=== PATIENT | male | born 1995 | race Caucasian/White ===

== ENCOUNTER 2017-11-17 20:32 | Emergency (ER) | payer OTHER ==
[~2017-11-17] VITALS: Ht 182.9 cm; Wt 136.1 kg
[2017-11-17] MEDS ORDERED: KEFLEX500 M1 PO (21:21)
[2017-11-17 21:28] VITALS: BP 158/84
== END 2017-11-17 21:28 | disposition home or self-care (01) ==
LOC: M.ERS 20:32
DX: S61.012A Laceration without foreign body of left thumb without damage to nail, initial encounter (principal); W26.8XXA Contact with other sharp object(s), not elsewhere classified, initial encounter; Y93.89 Activity, other specified; Y92.89 Other specified places as the place of occurrence of the external cause; Y99.0 Civilian activity done for income or pay

== ENCOUNTER 2018-12-06 23:42 | Emergency (ER) | payer OTHER ==
[~2018-12-06] VITALS: Ht 188 cm; Wt 147.0 kg
[~2018-12-06 23:42] MED LIST: KEFLEX500 M1 PO
[2018-12-07 00:05] LABS: ABSOLUTE BASOPHILS 0.1 thou/uL (0.0-0.2); ABSOLUTE EOSINOPHILS 0.1 thou/uL (0.0-0.7); ABSOLUTE LYMPHOCYTES 2.8 thou/uL (0.8-5.3); ABSOLUTE MONOCYTES 0.9 thou/uL (0.0-1.2); ABSOLUTE NEUTROPHILS 4.1 thou/uL (1.6-8.1); BASOPHILS 1.1 %; EOSINOPHILS 1.5 %; HEMATOCRIT 45.5 % (42.0-52.0); HEMOGLOBIN 15.8 gm/dL (14.0-18.0); LYMPHOCYTES 35.3 %; MCH 29.8 pg (26.0-34.0); MCHC 34.7 g/dL (28.0-37.0); MCV 85.9 fL (80.0-100.0); MPV 9.7 fl. (7.2-11.1); NUCLEATED RBCS 0 /100WBC; PLATELET COUNT* 234 thou/uL (150-400); POLYS 51.1 %; RDW-CV 12.7 % (10.5-14.5); WBC 8.1 thou/uL (4.0-11.0)
[2018-12-07 00:19] LABS: ALKALINE PHOSPHATASE 65 U/L (46-116); ANION GAP 11 mmol/L (7-16); BUN 15 mg/dL (7-18); CALCIUM 8.5 mg/dL (8.5-10.1); CHLORIDE 101 mmol/L (98-107); CO2 26 mmol/L (21-32); CREATININE 1.2 mg/dL (0.6-1.3); GLUCOSE 106 mg/dL (70-99); LIPASE 102 U/L (73-393); POTASSIUM 3.1 mmol/L (3.5-5.1); SGOT 28 U/L (15-37); SGPT 76 U/L (30-65); SODIUM 138 mmol/L (136-145); TOTAL BILIRUBIN 0.6 mg/dL (<0.1-1.0); TOTAL PROTEIN 7.8 g/dL (6.4-8.2); TROPONIN-I LEVEL <0.06 ng/mL (<0.06)
[2018-12-07 00:42] VITALS: BP 141/65
--- NOTE | 2018-12-07 17:38 | EKG ---
[place] [address] ELECTROCARDIOGRAM REPORT Name: ROSANNA WILKERSON Room: [facility]#: [id number] Admission: 12/06/18 Attend Phys: Discharge: 12/07/18 Date of : [birth year] Report #: [id number] THIS REPORT FOR: //name// [facility] ED Test Date: 2018-12-06 Test Time: 23:44:16 Pat Name: ROSANNA WILKERSON Department: Room: Gender: M [employer]: : 1995 Requested By: Elana Gonsalez Order Number: [id number] MD: Orlin Daley Measurements Intervals Rowe Rate: 86 P: 29 NE: 174 QRS: -3 QRSD: 107 T: 33 QT: 367 QTc: 439 Interpretive Statements Sinus rhythm ST elev, probable normal early repol pattern No previous ECG available for comparison Electronically Signed On 12-07-2018 17:38:42 CDT by rOlin Daley [email or web address] <ELECTRONICALLY SIGNED> By: Orlin Daley MD, [facility] 12/07/18 1738 [id number] 2344 Orlin Daley MD, FACC /EPI
== END 2018-12-07 00:44 | disposition home or self-care (01) ==
LOC: M.ERS 23:42
PROVIDERS: Emergency Medicine
DX: F41.9 Anxiety disorder, unspecified (principal); E87.6 Hypokalemia; Z88.8 Allergy status to other drugs, medicaments and biological substances

== ENCOUNTER → 2021-06-15 | Outpatient (CLI) | payer OTHER | LOC: M.ULTRA 10:13 | PROVIDERS: ATTEND Family Medicine | DX: K76.0 Fatty (change of) liver, not elsewhere classified (principal); R16.0 Hepatomegaly, not elsewhere classified; R74.8 Abnormal levels of other serum enzymes ==